=== PATIENT | male | born 1940 | race Caucasian/White ===

== ENCOUNTER 2017-07-25 09:49 | Inpatient (IN) | payer MEDICARE, BC ==
[2017-07-25] MEDS ORDERED: Albuterol/Ipratropium 3.0-0.5 MG/3 ML Neb Soln INH PRN (12:28)
[2017-07-25] MEDS ORDERED: Non-Formulary Medication 1 Each (Albuterol/Ipratropium [Combivent Respimat] 1 PUFF) INH PRN (12:28)
[2017-07-25] MEDS ORDERED: Sodium Chloride 3% 500 ML IV SCH (12:52)
[2017-07-25] MEDS: Sodium Chloride 0.9% 1,000 ML IV SCH ×2 (13:27→22:03)
[2017-07-25] MEDS ORDERED: Ipratropium 0.02% 0.5 MG/2.5 ML Neb Soln NEB SCH (14:00)
[2017-07-25] MEDS ORDERED: Pregabalin 100 MG Cap PO SCH (14:00)
--- NOTE | 2017-07-25 15:23 | CR ---
DATE OF SERVICE: 07/25/17 CLINICAL DATA: confusion AP PORTABLE CHEST: Comparison is made to a prior exam dated 06/22/16. The heart size is normal. The lungs are clear. No changes from the prior exam. No evidence of acute intrathoracic disease. [id number] [facility]
[2017-07-25] MEDS ORDERED: Lisinopril 10 MG Tab PO ONE (18:22)
[2017-07-25] MEDS ORDERED: Acetaminophen 650 MG Tab.ER PO PRN (19:47)
[2017-07-25] MEDS ORDERED: Acetaminophen 650 MG Tab.ER PO SCH (20:00)
[2017-07-25] MEDS ORDERED: ClonazePAM 0.5 MG Tab PO SCH (20:00)
[2017-07-25] MEDS ORDERED: Donepezil 5 MG Tab PO SCH (20:00)
[2017-07-25] MEDS ORDERED: Montelukast 10 MG Tab PO SCH (20:00)
[2017-07-25] MEDS ORDERED: Arformoterol 15 MCG/2 ML Neb Soln INH SCH (20:00)
[2017-07-25] MEDS ORDERED: Budesonide 0.25 MG/2 ML Neb Susp INH SCH (20:00)
[2017-07-25] MEDS ORDERED: Morphine 2 MG/ML Syringe IVPUSH PRN (22:35)
[2017-07-25] MEDS ORDERED: Morphine 10 MG/ML Syringe ONE (22:48)
--- NOTE | 2017-07-26 00:06 | HP ---
DATE OF ADMISSION: 07/25/2017 HISTORY OF PRESENT ILLNESS: This is a 77-year-old male who was admitted through the ER for weakness with some episodes of confusion the last few days. The patient did eat a good dinner here at the hospital, and he seems to be doing better this afternoon. We are resuming the patient's home medications here. His blood pressure was elevated in the ER. When we first admitted the patient to the hospital, his blood pressure came down to 153/86. At 1 p.m., it was 171/66. The patient seems again more alert and is not complaining of any pain. He is not coughing. PAST MEDICAL HISTORY: Includes: 1. COPD. 2. Coronary artery disease. 3. History of an abdominal aneurysm that was surgically fixed. SURGICAL HISTORY: 1. Stent placement, cardiac as well as carotid stents. 2. Abdominal aneurysm surgically corrected. TREATMENT PLAN: The patient will be given an additional dose of lisinopril this evening 10 mg p.o. He will be monitored and will be given some normal saline at the rate of 125 an hour. YAMILETH/LEATHA MAYNOR
--- NOTE | 2017-07-26 00:39 | ER ---
DATE OF SERVICE: 07/25/2017 HISTORY OF PRESENT ILLNESS: A 77-year-old male who comes in by ambulance with complaints of not feeling well for the last 4 to 5 days. His tells me that he has been confused at times and very tired. He also feels cold, but this is chronic for him. The patient tells me he does not feel well, otherwise defers to his to answer questions. He has had some shakiness recently. Again, this is not a new sign. He has not been coughing. He denies any problems with chest pain or trouble breathing. PAST MEDICAL HISTORY: Includes COPD, severe history of pneumonia and aspiration pneumonia. CURRENT MEDICATIONS: Reviewed. ALLERGIES: LIPITOR AND PREDNISONE. OBJECTIVE: GENERAL APPEARANCE: The patient is awake and alert. No obvious respiratory distress. He does appear to be somewhat confused at times, but at other times will answer questions. He keeps complaining that he is cold. VITAL SIGNS: Blood pressure 188/80 initially. He is afebrile, pulse is 95, O2 sats are 97% on 4 L of O2, which is the same rate that he has at home. HEENT: Eyes, pupils are equal, round, and reactive to light. Ears, TMs are normal. Nares are slightly dry. Oral mucous membranes are also slightly dry. Tonsils not enlarged or injected. Pharynx not inflamed. NECK: Supple. LUNGS : Clear to auscultation without rales, wheezes, or rhonchi. CARDIAC: Heart sounds distinct. No murmurs noted. ABDOMEN: Soft, protuberant, and nontender to palpation. Bowel sounds are present. SKIN: Warm and dry. There is no lower extremity edema noted. LAB AND X-RAY STUDIES: An EKG shows normal sinus rhythm. Labs include CBC showing a normal white count. Neutrophils are slightly elevated. Venous blood gases reveals a pH of 7.42, pCO2 of 60.8, and bicarb is 39.6. Comprehensive metabolic panel shows a BUN of 29, creatinine 1.44, and GFR 47, otherwise unremarkable. BNP is just mildly elevated at 382. Troponin is negative. Chest x-ray is unremarkable. DIAGNOSES: Weakness with confusion. TREATMENT PLAN: The patient will be admitted to the hospital. We will give him some IV fluids and monitor him. For further details, refer to the H and P dictation. CRS/MODL /[id number] MAYNOR
[2017-07-26] MEDS ORDERED: LORazepam 2 MG/ML SDV ONE (02:10)
[2017-07-26] MEDS: LORazepam 2 MG/ML SDV IVPUSH ONE ×2 (02:15→02:24)
[2017-07-26] MEDS ORDERED: Piperacillin/Tazobactam 3.375 GM in Sodium Chloride 0.9% 100 ML IV ONE (03:15)
[2017-07-26 04:43] VITALS: BP 183/69
[2017-07-26] MEDS: Sodium Chloride 0.9% 1,000 ML IV SCH (05:28)
[2017-07-26] MEDS ORDERED: Multivitamins with Iron/Calcium/Folic Acid/Minerals Tab PO SCH (08:00)
[2017-07-26] MEDS ORDERED: Non-Formulary Medication 1 Each (Umeclidinium Bromide [Incruse Ellipta] 62.5 MCG) IH SCH (08:00)
[2017-07-26] MEDS ORDERED: Tamsulosin 0.4 MG Cap.ER PO SCH (08:00)
[2017-07-26] MEDS ORDERED: Ferrous Sulfate 325 MG Tab PO SCH (08:00)
[2017-07-26] MEDS ORDERED: Non-Formulary Medication 1 Each (Ferrous Sulfate [Ferrous Sulfate] 324 MG) PO SCH (08:00)
[2017-07-26] MEDS ORDERED: Calcium Carbonate/Vitamin D3 1500 MG-400 Units Tab PO SCH (08:00)
[2017-07-26] MEDS ORDERED: Albuterol/Ipratropium 3.0-0.5 MG/3 ML Neb Soln NEB SCH (08:00)
[2017-07-26] MEDS ORDERED: Simvastatin 40 MG Tab PO SCH (08:00)
[2017-07-26] MEDS ORDERED: Aspirin 81 MG Tab.Chew PO SCH (08:00)
[2017-07-26] MEDS ORDERED: Fluticasone Propionate Nasal Spray 16 GM Bottle NASBOTH SCH (08:00)
[2017-07-26] MEDS ORDERED: Lisinopril 5 MG Tab PO SCH (08:00)
[2017-07-26] MEDS ORDERED: Tiotropium Inhaler 18 MCG Inhalation Powder Cap Kit of 5 INH SCH (08:00)
--- NOTE | 2017-07-26 08:32 | CT ---
DATE OF SERVICE: 07/26/17 CLINICAL DATA: Abd distention. UNENHANCED CHEST CT: Multislice acquisition through the chest without IV contrast was performed. Breathing motion artifact degrades image quality. There are emphysematous changes throughout both lungs. There are mild atelectatic changes in the dependent portion of both lungs and in both lung bases. There are linear densities in both lung bases consistent with linear atelectasis or fibrosis. The lungs are otherwise clear. No pleural effusions. No pneumothorax. The heart size is normal. No pericardial effusion. There are coronary artery calcifications. There are atherosclerotic changes of the thoracic aorta. No aneurysm. No hilar or mediastinal adenopathy. No other significant findings. UNENHANCED ABDOMEN AND PELVIC CT: Multislice axial acquisition through the abdomen and pelvis without IV or oral contrast was performed. No priors. Motion artifact degrades image quality. The unenhanced liver appears normal. No focal hepatic lesions. The gallbladder appears normal. The stomach is fluid and gas-filled and moderately distended. The spleen appears normal. There are a couple of small calcifications within the pancreas suggesting chronic pancreatitis. The pancreas otherwise appears normal. The right and left adrenals appear normal. There is atrophy of both kidneys, left greater than right. No nephrocalcinosis or nephrolithiasis. No hydronephrosis or hydroureter. There is a small amount of fluid within the bladder. It appears grossly normal. There is severe diverticulosis of the descending and sigmoid colon. No definite evidence of diverticulitis. The appendix is not dilated. No evidence of appendicitis. There are multiple fluid and gas-filled loops of small bowel in the mid and lower abdomen. A couple of these are mildly dilated. They do contain a few scattered air-fluid levels. A localized ileus or early partial obstruction should be considered. Followup imaging is recommended if clinically indicated. No free air. No adenopathy. 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 No evidence of leakage. There are bilateral inguinal hernias containing fat. No other significant findings. [id number] [facility]
--- NOTE | 2017-07-26 10:04 | DISCH ---
This patient was admitted to the emergency room yesterday afternoon for weakness and intermittent confusion. About 2 a.m. this morning, I received a phone call that the patient was shaking uncontrollably. He was somewhat responding to verbal stimuli at this time. Upon reaching the patient, he had a convulsion activity. Vital signs at that time revealed a temp of 99.5, blood pressure 180/69, pulse is 142. The patient had been receiving IV fluids for about 12 hours at this point. Initially, Ativan 1 mg was given IV. This was repeated about 10 minutes later and within about another 30 minutes the patient' s convulsion activity resolved. Labs drawn include a lactic acid level that was significantly elevated at 9.46. CBC shows a white count of 11,000, neutrophils have actually gone down from 80 yesterday afternoon to 50.2. Metabolic panel is unremarkable. UA was obtained by catheterization and it reveals a small amount of protein and bilirubin as well as 40 ketones. No sign of infection. At this point, the patient is diagnosed with sepsis with convulsion activity. I did consult with the [place] physician, Dr. Godinez. The patient will be given IV fluids. CT of the chest and abdomen were ordered as well. The patient also will be started on Zosyn. After these measures were obtained, I did talk to talk to the patient's family about transferring him and they are agreeable to this. The patient's condition is at high risk for worsening. I feel as well as his underlying comorbidities, which are mainly severe COPD and hypertension. Arrangements were made to transfer the patient to [facility] in [place] with [facility]. Approximate time of transfer will be 5:30 a.m. as of this time, which is 4:23 a.m. The patient is not confused. He is awake. He is tired and tells me he feels a little achy, but is not having any pain. He states that he feels better. Addendum; Pt left our facility at 5:30 am. He was alert the last 90 minutes and his vital signs returned to normal. CRS/MODL /[id number] MAYNOR
== END 2017-07-26 05:42 | DRG 872 ==
LOC: LB.ED 09:49 → LB.MS 12:26
PROVIDERS: ADMIT Physician Assistant; ATTEND Physician Assistant
DX: R53.1 Weakness (principal); R41.0 Disorientation, unspecified; A41.9 Sepsis, unspecified organism; R56.9 Unspecified convulsions; I10 Essential (primary) hypertension; J44.9 Chronic obstructive pulmonary disease, unspecified; I25.10 Atherosclerotic heart disease of native coronary artery without angina pectoris; Z95.5 Presence of coronary angioplasty implant and graft; Z87.01 Personal history of pneumonia (recurrent); Z88.8 Allergy status to other drugs, medicaments and biological substances
CPT/HCPCS: 36415; 71045; 71250; 74176; 80048; 80053; 81001; 82803; 83605; 83880; 84484; 85025; 93005; A0425; A0429; A9270-GY; J2270; J2543; J7030; J7040; J7605